=== PATIENT | female | born 1980 | race Caucasian/White ===

== ENCOUNTER 2016-11-05 18:00 | Inpatient (IN) | payer OTHER ==
[2016-11-05 19:50] LABS: BASOPHIL 0.4 % (0-2.0); EOSINOPHIL 1.2 % (0-4.5); MCH 31.4 pg (25.7-33.7); MEAN CELL VOLUME 92.5 fl (80-96); MEAN PLT VOLUME 10.3 fl (7.5-11.1); NEUTROPHILS 62.3 % (42.8-82.8); PLATELET COUNT 138 K/MM3 (134-434); RDW 13.5 % (11.6-15.6); WHITE BLOOD COUNT 4.6 K/mm3 (4.0-10.0)
[2016-11-05 20:00] LABS: INR 0.95 (0.82-1.09); PROTHROMBIN TIME (PATIENT) 10.4 SEC (9.98-11.88)
[2016-11-05 20:03] LABS: ACTIVATED PTT 26.7 SECONDS (26.9-34.4)
[2016-11-05 20:25] LABS: CALCIUM 8.5 mg/dL (8.5-10.1); CREATININE 0.4 mg/dL (0.55-1.02)
[2016-11-05 20:47] VITALS: BMI 27.4
--- NOTE | 2016-11-05 23:07 | HP ---
Past Medical History - Admission Chief Complaint: Referred for induction of labor History of Present Illness: 36 yo @ 37 weeks gestation seen by MFM today who recommended delivery due to abnormally elevated bile acids. She denies any epigastric pain nor headache. History Source: Patient Limitations to Obtaining History: No Limitations - Past Medical History ...: 4 ...Para: 3 ...Term: 2 ...: 1 ...Spon : 0 ...Induced : 0 ...Multiple Gestation: 0 ...LMP: 02/15/16 ... Weeks Gestation by Dates: 37.5 ...EDC by Dates: 11/21/16 ...EDC by Sono: 11/21/16 - Past Surgical History Past Surgical History: Yes: None Hx Myomectomy: No Hx Transabdominal Cerclage: No - Smoking History Smoking history: Never smoked Have you smoked in the past 12 months: No - Alcohol/Substance Use Hx Alcohol Use: No History of Substance Use: reports: None - Social History Usual Living Arrangement: Yes: With Spouse History of Recent Travel: No Home Medications - Allergies Allergies/Adverse Reactions: Allergies Allergy/AdvReac Type Severity Reaction Status Date / Time No Known Allergies Allergy Verified 04/02/16 16:00 Family Disease History - Family Disease History Family History: Unremarkable Review of Systems - Review of Systems Constitutional: reports: No Symptoms Eyes: reports: No Symptoms HENT: reports: No Symptoms Neck: reports: No Symptoms Cardiovascular: reports: No Symptoms Respiratory: reports: No Symptoms Gastrointestinal: reports: No Symptoms Genitourinary: reports: No Symptoms Breasts: reports: No Symptoms Reported Musculoskeletal: reports: No Symptoms Integumentary: reports: No Symptoms Neurological: reports: No Symptoms Endocrine: reports: No Symptoms Hematology/Lymphatic: reports: No Symptoms Psychiatric: reports: No Symptoms Pain Intensity: 0 Physical Exam - Maternity Vital Signs: Vital Signs Temperature 98.2 F 11/05/16 22:11 Pulse Rate 67 11/05/16 22:11 Respiratory Rate 20 11/05/16 22:11 Blood Pressure 103/68 11/05/16 22:11 O2 Sat by Pulse Oximetry (%) Constitutional: Yes: Well Nourished Eyes: Yes: Conjunctiva Clear HENT: Yes: Atraumatic Neck: Yes: Supple, Trachea Midline Cardiovascular: Yes: Regular Rate and Rhythm Lungs: Clear to auscultation - Abdominal Exam/OB Number of Fetuses: Single Presentation: Vertex - Vaginal Exam/OB Effacement (%): 50 - Physical Exam ...Motor Strength: WNL Psychiatric: Yes: Alert, Oriented - Labs Lab Results: CBC, BMP 11/05/16 19:00 11/05/16 19:00 Assessment/Plan R/O Cholestasis of Induction of labor Cervidil placed Reevaluate in 12 hours or before if indicated
[2016-11-05] MEDS ORDERED: DINOPROSTONE 10 MG VAGINAL SUPPOSITORY VG ONE (23:15)
[2016-11-06] MEDS ORDERED: LACTATED RINGERS SOLUTION 1,000 ML IV SCH (04:45)
[2016-11-06] MEDS ORDERED: OXYTOCIN 15 UNITS/ LR 250 ML 250 ML IVPB SCH (11:30)
--- NOTE | 2016-11-06 11:30 | PN ---
Progress Note (short form) - Note Progress Note: 36 yrs EDC 11/21/16 37.5/7 weeks [address]up admitted by Dr Webb for induction of labor due to High Bile acds , delivery was recommended by MFM 10/29/16 Bile acds 51.9 fractionated bile acids also elevated 11/05/16 sono 37.5 wks, bpp 8/8,EFW 6'2", , AICHA 10.79 AMA, NT /AFP/Materna T21 neg. pt is s/p Cervidil induction for 12 hrs presently UC are dysfunctional 2-4 min mild FHR 130-140 cat-1 Pelvic 1cm/50%/ND/Vx-3/pelvis adequate Selected Entries 11/06/16 10:00 Temperature 98.0 F Pulse Rate 69 Blood Pressure 103/71 Laboratory Tests 11/05/16 11/05/16 11/05/16 19:00 19:00 19:00 WBC 4.6 D Hgb 11.7 Hct 34.4 Plt Count 138 D Neutrophils % 62.3 Lymphocytes % 28.4 Monocytes % 7.7 Eosinophils % 1.2 Basophils % 0.4 INR 0.95 PTT (Actin FS) 26.7 L Sodium 138 Potassium 3.9 Chloride 108 H BUN [address] Trial of labor Pitocin augmentaion
[2016-11-06] MEDS ORDERED: DEXTROSE 5%-LACTATED RINGERS 1,000 ML IV SCH (13:30)
--- NOTE | 2016-11-06 17:11 | PN ---
Progress Note (short form) - Note Progress Note: 2 cm/60%/OK/Vx -3/pelvis adequate uc 2-3 min fhr 140 cat-1 . Pitocin 12 ml/hr Selected Entries 11/06/16 11/06/16 11/06/16 14:00 15:00 16:05 Temperature 97.9 F Pulse Rate 62 59 L 62 Blood Pressure 105/68 101/66 101/[address] Pitocin Induction
[2016-11-06] MEDS ORDERED: BUTORPHANOL TARTRATE 1 MG/ML VIAL IVPUSH PRN (18:02)
[2016-11-06] MEDS ORDERED: PROMETHAZINE HCL 25 MG/1 ML VIAL IVPUSH ONE (18:03)
--- NOTE | 2016-11-06 18:06 | PN ---
Progress Note, Labor Vaginal Exam #1 Labor Exam Date: 11/06/16 Labor Exam Time: 17:55 Heart Rate (range): 130-140 Dilatation: 4 Effacement (%): 70 Amniotic Membrane Status: Ruptured (AROM clear, blood clot from cervix prior passed vaginally) Presentation: Vertex/Position Station: -2 Remarks: uc q2 min fhr cat-1 Pitocin 13 ml/hr rx if stadol 1mg + phenrgan 25 mg stat Selected Entries 11/06/16 18:00 Temperature 98.1 F Pulse Rate 64 Blood Pressure 112/75 Vaginal Exam #2 Labor Exam Date: 11/06/16 Labor Exam Time: 18:30 Heart Rate (range): 120-140 Dilatation: 7 Effacement (%): 100 Amniotic Membrane Status: Ruptured Presentation: Vertex/Position Station: -1 Remarks: variable decel, , cat-2 uc q2-3 min 18.42hr fully dilated, vx+3 Pt pushing
--- NOTE | 2016-11-06 19:13 | PN ---
Delivery - Delivery Vaginal Delivery: No Problems, Spontaneous (true knot in the cord was noted) Episiotomy/Laceration: None EBL (cc): 300 (bladder cathetrized & emptied 200 ml urine ) Delivery, Single - Stages of Labor Date 1st Stage Initiatied: 11/06/16 Time 1st Stage Initiated: 15:00 Date 2nd Stage Initiated: 11/06/16 Time 2nd Stage Initiated: 18:42 Date of Delivery: 11/06/16 Time of Delivery: 18:46 Date Placenta Delivered: 11/06/16 Time Placenta Delivered: 18:50 Placenta: Yes: Spontaneous, Uterine Exploration - Condition of Infant Gender: Male Weight: 6 lb 9 oz Position: OA Total Hours ROM (Hrs/Mins): 0:55 - 5 Minutes Total Score: 9 1 Minute Total Score: 9 - [place] Feeding Plan Initial Plan: Elected not to breastfeed exclusively throughout hospitalization Remarks - Remarks Remarks: 36 yrs , 37.5 weeks admitted for induction of labor due to cholestasis , Increase bile acids . PNC at [address] [place] [address] . Gbs neg Cervidil induction started on 11/05/16, followed by Pitocin Induction on 11/06/16. Stadol1 mg + phenrgan 25 mg iv was given for Labor analgesia Intrapartum course uneventful
[2016-11-06] MEDS ORDERED: METHYLERGONOVINE MALEATE 0.2 MG/1 ML AMP IM PRN (19:14)
[2016-11-06] MEDS ORDERED: oxyCODONE HCL 5 MG TABLET PO PRN (19:14)
[2016-11-06] MEDS ORDERED: BISACODYL 10 MG SUPP.RECT RC PRN (19:14)
[2016-11-06] MEDS ORDERED: BENZOCAINE 20% 57 GM BOTTLE TP PRN (19:14)
[2016-11-06] MEDS ORDERED: BENZOCAINE 28 GM HEMORRHOIDAL OINTMENT TP PRN (19:14)
[2016-11-06] MEDS ORDERED: WITCH HAZEL 50% (TUCKS) 40 PAD/JAR PAD TP PRN (19:14)
[2016-11-06] MEDS ORDERED: D5W-LR W/ 20 UNITS OXYTOCIN 1,000 ML IV SCH (19:15)
[2016-11-06] MEDS: ACETAMINOPHEN 325 MG TABLET (FP) PO PRN (22:34)
[2016-11-06] MEDS: IBUPROFEN 600 MG TABLET (FP) PO PRN (22:35)
--- NOTE | 2016-11-07 04:59 | PN ---
Progress Note (short form) - Note Progress Note: ppd 1 doing well, no excess vaginal bleeding Last Vital Signs Temp Pulse Resp BP Pulse Ox 98.9 F 69 20 107/69 11/07/16 02:00 11/07/16 02:00 11/06/16 21:30 11/07/16 02:00 CBC, BMP 11/05/16 19:00 11/05/16 19:00 uterus firm, non tender, no cva lochia mild plan ambulate, cbc
[2016-11-07 06:57] LABS: BASOPHIL 0.3 % (0-2.0); EOSINOPHIL 0.5 % (0-4.5); MCH 31.9 pg (25.7-33.7); MCHC 34.4 g/dl (32.0-36.0); MEAN CELL VOLUME 92.8 fl (80-96); MEAN PLT VOLUME 10.2 fl (7.5-11.1); NEUTROPHILS 72.8 % (42.8-82.8); PLATELET COUNT 127 K/MM3 (134-434); RDW 13.7 % (11.6-15.6); WHITE BLOOD COUNT 7.4 K/mm3 (4.0-10.0)
[2016-11-07] MEDS: FERROUS SO4 325 MG TABLET (FP) PO SCH ×2 (08:55→16:55)
[2016-11-07] MEDS: PRENATAL VITAMINS W/ FOLIC ACID TABLET (FP) PO SCH ×2 (08:58→09:05)
--- NOTE | 2016-11-07 13:40 | DS ---
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 No: Tenderness ...Rectal Exam: Yes: WNL ....Post : Yes: Uterus firm, Uterus non-tender, Moderate lochia rubra ( perineum intact) Breast(s): Yes: WNL (BF) Extremities: Yes: WNL. No: Calf Tenderness Edema: No Integumentary: Yes: WNL Neurological: Yes: WNL ...Motor Strength: WNL Psychiatric: Yes: WNL, Alert, Oriented Labs: CBC, BMP 11/07/16 06:20 11/05/16 19:00 Delivery - Delivery Vaginal Delivery: No Problems, Spontaneous (true knot in the cord was noted) Type of Anesthesia: None Episiotomy/Laceration: None EBL (cc): 300 (bladder cathetrized & emptied 200 ml urine ) Delivery, Single - Stages of Labor Date 1st Stage Initiatied: 11/06/16 Time 1st Stage Initiated: 15:00 Date 2nd Stage Initiated: 11/06/16 Time 2nd Stage Initiated: 18:42 Date of Delivery: 11/06/16 Time of Delivery: 18:46 Time Placenta Delivered: 18:50 Placenta: Yes: Spontaneous, Uterine Exploration - 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 PNC at [address] [place] [address] . Gbs neg Cervidil induction started on 11/05/16, followed by Pitocin Induction on 11/06/16. Stadol1 mg + phenrgan 25 mg iv was given for Labor analgesia Intrapartum course uneventful pp course uneventful discharge on 11/08/16 Discharge Summary Reason For Visit: INDUCTION OF LABOR Current Active Problems Cholestasis during in third trimester (Acute) Elective induction of labor planned (Acute) Normal spontaneous vaginal delivery (Acute) with 37 or more completed weeks gestation (Acute) Condition: Stable - Instructions Diet, Activity, Other Instructions: Post Instructions DIET: Continue good diet high in protein, calcium, and iron rich foods. Drink at least eight (8) glasses of water daily in addition to other fluids. ___ Regular diet MEDICATIONS: Continue vitamins and iron as previously directed. Motrin and Tylenol may be taken for minor discomfort. ACTIVITY: Mild to moderate exercise may be started in two (2) weeks. Take frequent rest periods. Resume normal activity after six (6) week check up. WOUND CARE OF OPERATIVE SITE: Continue use of perineal bottle until vaginal discharge stops. Keep area clean. Shower daily. Keep abdominal wound dry. Report any drainage or redness to physician. Tub baths, tampons and douches are not permitted for [address] Breast feeding & or Bottle feeding BREAST CARE: (For those that are not breast feeding): If engorgement occurs: Wear tight fitting bra. Take Tylenol or Motrin for pain. Apply cold packs (ice in bags to each breast ) FAMILY PLANNING: There are many control alternatives to pursue and they should be discussed at your first office visit. You may resume sexual activity after your six (6) week check up. (Remember, breast feeding is not a contraceptive) NEXT PHYSICIAN APPOINTMENT: Be certain to call for a six (6) week appointment, unless otherwise directed. Call Clinic or got to Emergency Dept if you have any of the following: Heavy vaginal bleeding Painful urination Leg pain Unusual odor noted to vaginal bleeding High fever Red streaking noted on breast Referrals: Jamila Hawk MD [Staff Physician] - Disposition: HOME - Home Medications Comprehensive Discharge Medication List: Ambulatory Orders Acetaminophen [Tylenol .Regular Strength -] 650 mg PO Q3H PRN #0 tablet Ferrous Sulfate [Feosol] 325 mg PO BIDWM #60 tab 11/06/16 Ibuprofen [Motrin -] 200 mg PO Q4H PRN #0 tablet 11/06/16 Vitamins (Sjr) - 1 tab PO DAILY #30 tablet 11/06/16
[2016-11-07] MEDS: ACETAMINOPHEN 325 MG TABLET (FP) PO PRN (20:21)
[2016-11-07] MEDS: IBUPROFEN 600 MG TABLET (FP) PO PRN (20:22)
[2016-11-07] MEDS ORDERED: SENNOSIDES/DOCUSATE COMBO (SENNA PLUS) TABLET (UD) PO PRN (22:00)
[2016-11-07 23:44] VITALS: PULSE 70
[2016-11-08 07:49] VITALS: BP 113/72; TEMP 98.4
[2016-11-08] MEDS: PRENATAL VITAMINS W/ FOLIC ACID TABLET (FP) PO SCH ×2 (08:37→09:11)
[2016-11-08] MEDS: FERROUS SO4 325 MG TABLET (FP) PO SCH (08:37)
--- NOTE | 2016-11-11 14:43 | PATH ---
Surgical Pathology Report Patient Name: [facility]. Rec. 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 Specimen(s) Received PLACENTA Clinical History - - 06/25-28 weeks, 07/31 Final Diagnosis PLACENTA, DELIVERY: SMALL (326 gram) FOCALLY DISRUPTED THIRD TRIMESTER PLACENTA WITH THREE VESSEL UMBILICAL CORD AND UNREMARKABLE PLACENTAL MEMBRANES. Electronically Signed Maverick Das M.D. Gross Description The specimen is received fresh labeled placenta and is a 326 gram, 19.0 x 13.0 x 2.2 cm. placenta with attached membranes and umbilical cord. The attached membranes are funez, translucent with focal opacities and insert marginally. The umbilical cord measures 36 cm. in length and averages 1.4 cm. in diameter. The cord inserts eccentrically, 3.5 cm. to the nearest margin. No true knots or strictures are identified. Cut surface of the umbilical cord reveals 3 vessels. The surface is mckinnon-blue with minimal fibrin deposition and appropriate caliber vessels. The maternal surface is red-brown with focal defects. Sectioning reveals red-brown, spongy parenchyma. No lesions are identified. Senior Management Consultant sections are submitted in three cassettes as follows: 1- membrane rolls and umbilical cord; 2-3- full thickness sections of placenta. 11/10/2016 [facility]
== END 2016-11-08 10:00 | disposition home or self-care (01) | DRG 560 ==
LOC: JLDR 18:00 → J3W 11-06 21:30
PROVIDERS: ADMIT Obstetrics & Gynecology; ATTEND Obstetrics & Gynecology
PROC: 3E0P7GC Introduction of Other Therapeutic Substance into Female Reproductive, Via Natural or Artificial Opening (ICD-10-PCS; 2016-11-05)
PROC: 10E0XZZ Delivery of Products of Conception, External Approach (ICD-10-PCS; principal; 2016-11-06)
DX: O26.613 Liver and biliary tract disorders in pregnancy, third trimester (principal); K83.1 Obstruction of bile duct; Z3A.37 37 weeks gestation of pregnancy; Z37.0 Single live birth
CPT/HCPCS: 36415; 59409; 80048; 85025; 85610; 85730; 86593; 86850; 86900; 86901; 88307-TC

== ENCOUNTER 2017-01-22 04:57 | Day surgery (SDC) | payer OTHER ==
[2017-01-15 14:44] VITALS: BMI 25.0
[2017-01-22] MEDS ORDERED: PROMETHAZINE HCL 25 MG/1 ML VIAL IVPUSH PRN (14:35)
[2017-01-22] MEDS ORDERED: oxyCODONE HCL 5 MG TABLET PO PRN ×3 (14:35→16:36)
[2017-01-22] MEDS ORDERED: ONDANSETRON 4 MG/2 ML VIAL IVPUSH PRN ×2 (14:35→16:28)
[2017-01-22] MEDS ORDERED: LACTATED RINGERS SOLUTION 1,000 ML IV SCH ×2 (14:45→16:30)
[2017-01-22] MEDS ORDERED: MIDAZOLAM HCL 2 MG/2 ML SINGLE DOSE VIAL ONE (15:14)
[2017-01-22] MEDS ORDERED: NEOSTIGMINE METHYLSULFATE 0.5 MG/ML - 10 ML MDV ONE (15:18)
[2017-01-22] MEDS ORDERED: IBUPROFEN 600 MG TABLET (FP) PO PRN (16:36)
[2017-01-22] MEDS ORDERED: IBUPROFEN 800 MG/8 ML IJ IVPB PRN (16:36)
[2017-01-22] MEDS ORDERED: ONDANSETRON 4 MG/2 ML VIAL IVPB PRN (16:36)
[2017-01-22] MEDS ORDERED: ELECTROLYTE-148 SOLN 1,000 ML IV SCH (16:45)
--- NOTE | 2017-01-22 17:23 | HP ---
Past Medical History - Primary Care Physician PCP:: Gonzalez Jaime - Admission Chief Complaint: voluntary sterlization History of Present Illness: 36 yo f requesting tubal ligation, risks discussed aware procedure is permanent and has small failure risks and risks of ectopic````````` History Source: Patient - Past Medical History Hepatobiliary: Yes: Cholelithiasis - Past Surgical History Past Surgical History: Yes: None Hx Myomectomy: No Hx Transabdominal Cerclage: No - Smoking History Smoking history: Never smoked Have you smoked in the past 12 months: No - Alcohol/Substance Use Hx Alcohol Use: No History of Substance Use: reports: None - Social History History of Recent Travel: No Home Medications - Allergies Allergies/Adverse Reactions: Allergies Allergy/AdvReac Type Severity Reaction Status Date / Time No Known Allergies Allergy Verified 01/22/17 13:52 - Home Medications Home Medications: Ambulatory Orders Ibuprofen [Motrin -] 600 mg PO QID #28 tablet 01/22/17 Review of Systems - Review of Systems Constitutional: reports: No Symptoms Eyes: reports: No Symptoms HENT: reports: No Symptoms Neck: reports: No Symptoms Cardiovascular: reports: No Symptoms Respiratory: reports: No Symptoms Gastrointestinal: reports: No Symptoms Genitourinary: reports: No Symptoms Breasts: reports: No Symptoms Reported Musculoskeletal: reports: No Symptoms Integumentary: reports: No Symptoms Neurological: reports: No Symptoms Endocrine: reports: No Symptoms Hematology/Lymphatic: reports: No Symptoms Psychiatric: reports: No Symptoms 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 Vital Signs: Vital Signs Temperature 97.5 F L 01/22/17 13:55 Pulse Rate 64 01/22/17 13:55 Respiratory Rate 18 01/22/17 13:55 Blood Pressure 102/70 01/22/17 13:55 O2 Sat by Pulse Oximetry (%) 98 01/22/17 13:54 Constitutional: Yes: Well Nourished, No Distress, Calm Eyes: Yes: WNL, Conjunctiva Clear, EOM Intact HENT: Yes: WNL, Atraumatic, Normocephalic Neck: Yes: WNL, Supple, Trachea Midline Cardiovascular: Yes: WNL, Regular Rate and Rhythm Respiratory: Yes: WNL, Regular, CTA Bilaterally Gastrointestinal: Yes: WNL ...Rectal Exam: Yes: WNL Renal/: Yes: WNL External Genitalia: Yes: Normal Internal Exam Deferred: No Vaginal Exam: Yes: Normal Cervix: Yes: Normal Uterus: Yes: Normal ....Post : Yes: Uterus firm Breast(s): Yes: WNL Musculoskeletal: Yes: WNL Extremities: Yes: WNL Integumentary: Yes: WNL Neurological: Yes: WNL, Alert, Oriented ...Motor Strength: WNL Psychiatric: Yes: WNL, Alert, Oriented Problem List - Problem (1) Sterilization Code(s): Z30.2 - ENCOUNTER FOR STERILIZATION Assessment/Plan laparoscopic bilateral tubal ligation
[2017-01-22] MEDS ORDERED: IBUPROFEN 600 MG TABLET (FP) PO ONE (18:05)
[2017-01-22 18:50] VITALS: TEMP 97.8
[2017-01-22 19:22] VITALS: BP 99/64; PULSE 64
--- NOTE | 2017-02-26 20:11 | OP ---
DATE OF OPERATION: 01/22/2017 PREOPERATIVE DIAGNOSIS: Voluntary sterilization. POSTOPERATIVE DIAGNOSIS: Voluntary sterilization. PROCEDURE: Laparoscopy, bilateral tubal cauterization. SURGEON: Gonzalez Jaime MD ANESTHESIA: General. ESTIMATED BLOOD LOSS: Minimal. OPERATION: Patient was taken to operating room under adequate general anesthesia in dorsal lithotomy position. Examination under anesthesia revealed external genitalia to be normal; vagina was normal; cervix clean, no lesion; uterus normal size; adnexa, no masses palpable. Then with a weighted speculum in the vagina, anterior lip of the cervix was grasped with a single-tooth tenaculum and Hulka was introduced in the uterine cavity for manipulation. Then patient was prepped and draped for a pelviscopy. A small infraumbilical skin incision was made. Veress needle was introduced, pneumoperitoneum established. A 5-mm trocar was introduced. Then, under direct vision, a 5-mm trocar introduced through the suprapubic area. Both tubes were visualized. Uterus was normal size. Both ovaries were normal. No pelvic adhesions or cul-de-sac adhesion. Upper abdomen was checked, was normal. Bladder was normal. Then right tube was grasped with bipolar cautery. Right tube was cauterized in 3 portions 2 cm apart, and the same procedure repeated for opposite tube. Visualization of both tubes adequate cauterization of both tubes, no bleeding was seen. Instruments withdrawn. Abdomen was emptied of all the gases. Suprapubic and infraumbilical skin incisions were closed with interrupted suture of 0 Biosyn, and the skin was closed with Dermabond glue. Patient tolerated the procedure well, left the OR in good condition. [place] [id number]
== END 2017-01-22 19:10 | disposition home or self-care (01) ==
LOC: JASU-SURG 04:57
PROVIDERS: ATTEND Obstetrics & Gynecology
PROC: 0U574ZZ Destruction of Bilateral Fallopian Tubes, Percutaneous Endoscopic Approach (ICD-10-PCS; principal; 2017-01-22 16:00)
DX: Z30.2 Encounter for sterilization (principal)
CPT/HCPCS: 84703; 94760

== ENCOUNTER 2022-04-08 08:31 | Emergency (ER) | payer OTHER ==
[2022-04-08 08:54] VITALS: BP 103/72; PULSE 85; RESP 18; TEMP 97.7; BMI 29.7
== END 2022-04-08 12:15 | disposition home or self-care (01) ==
LOC: JER 08:31
DX: J09.X2 Influenza due to identified novel influenza A virus with other respiratory manifestations (principal); R05.1 Acute cough; J02.9 Acute pharyngitis, unspecified
CPT/HCPCS: 0241U-QW; 99283-25